=== PATIENT | male | born 2000 | race Caucasian/White ===

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

== ENCOUNTER 2018-06-27 09:22 | Emergency (ER) | payer BC ==
[2018-06-27 09:53] VITALS: BP 122/66
--- NOTE | 2018-06-27 10:23 | UC ---
Respiratory Complaint HPI - HPI Summary HPI Summary: Pt presents with c/o cough that began 2 weeks ago. Pt had URI symptoms ~ 2 weeks ago and now has c/o cough that is worse at night and generalized malaise X 2 weeks. - History of Current Complaint Chief Complaint: UCRespiratory Stated Complaint: FLU LIKE SYMPTOMS Time Seen by Provider: 06/27/18 10:07 Hx Obtained From: Patient Onset/Duration: Sudden Onset, Lasting Weeks, Still Present Timing: Intermittent Episodes Severity Initially: Mild Severity Currently: Mild Pain Intensity: 0 Character: Cough: Nonproductive Aggravating Factors: Exertion, Deep Breaths, Recumbent Position Alleviating Factors: Nothing Associated Signs And Symptoms: Positive: URI - Risk Factors Pulmonary Embolism Risk Factors: Negative Cardiac Risk Factors: Negative Pseudomonas Risk Factors: Negative Tuberculosis Risk Factors: Negative - Allergies/Home Medications Allergies/Adverse Reactions: Allergies Allergy/AdvReac Type Severity Reaction Status Date / Time amoxicillin Allergy Unknown Hives Verified 06/27/18 09:49 azithromycin Allergy Unknown Hives Verified 06/27/18 09:49 Penicillins Allergy Unknown Hives Verified 06/27/18 09:49 Home Medications: Home Medications Ixekizumab [Taltz Autoinjector] 80 mg SC ONCE 06/27/18 [History Confirmed ] PMH/Surg Hx/FS Hx/Imm Hx Previously Healthy: Yes - Surgical History Surgical History: None - Family History Known Family History: Positive: Cardiac Disease Negative: Diabetes - Social History Occupation: [employer] - [employer] Lives: Dormitory/Roommates Alcohol Use: None Substance Use Type: None Smoking Status (MU): Never Smoked Tobacco Have You Smoked in the Last Year: No - Immunization History Most Recent Influenza Vaccination: NA Most Recent Pneumonia Vaccination: NA Vaccination Up to Date: Yes Review of Systems Constitutional: Fatigue Skin: Negative Eyes: Negative ENT: Negative Respiratory: Cough Cardiovascular: Negative Gastrointestinal: Negative Genitourinary: Negative Motor: Negative Neurovascular: Negative Musculoskeletal: Negative Neurological: Negative Psychological: Negative Is Patient Immunocompromised?: No All Other Systems Reviewed And Are Negative: Yes Physical Exam Triage Information Reviewed: Yes Appearance: Well-Appearing Vital Signs: Initial Vital Signs Temp 98.1 F 06/27/18 09:48 Pulse 85 06/27/18 09:48 Resp 15 06/27/18 09:48 BP 122/66 06/27/18 09:48 Pulse Ox 96 06/27/18 09:48 Vital Signs Reviewed: Yes Eye Exam: Normal ENT Exam: Normal Dental Exam: Normal Neck exam: Normal Respiratory Exam: Normal Cardiovascular Exam: Normal Musculoskeletal Exam: Normal Neurological Exam: Normal Psychological Exam: Normal Skin Exam: Normal UC Diagnostic Evaluation - Laboratory O2 Sat by Pulse Oximetry: 96 Respiratory Course/Dx - Differential Dx/Diagnosis Differential Diagnosis/HQI/PQRI: Bronchitis, Other - URI Provider Diagnoses: post viral cough Discharge - Sign-Out/Discharge Documenting (check all that apply): Patient Departure All imaging exams completed and their final reports reviewed: No Studies - Discharge Plan Condition: Stable Disposition: HOME Prescriptions: Benzonatate CAP* [Tessalon 100 MG CAP*] 100 mg PO TID PRN #21 cap PRN Reason: Cough Fexofenadine/Pseudoephedrine [Anna-D 24 Hour Tablet] 1 each PO DAILY #7 tab.er.24h predniSONE TAB* [Deltasone 10 MG TAB*] 30 mg PO DAILY #12 tab Patient Education Materials: Viral Syndrome (ED), Acute Cough (ED) Referrals: Geremias JOSEPH,Alexandre Li [Primary Care Provider] - If Needed - Billing Disposition and Condition Condition: STABLE Disposition: Home - Attestation Statements Provider Attestation: I was available for consult. This patient was seen by the CLEMENTINA. The patient was not presented to, seen by, or examined by me. -Alex
== END 2018-06-27 10:39 | disposition home or self-care (01) ==
LOC: UCCORT 09:22
DX: R05 Cough (principal); Z88.0 Allergy status to penicillin
CPT/HCPCS: 99212; G0463

== ENCOUNTER 2019-03-11 17:50 | Emergency (ER) | payer BC ==
[2019-03-11 18:07] VITALS: BP 106/63
[2019-03-11] MEDS ORDERED: Tetan/Diph/Pertus SYR(Tdap)* 0.5 ML SYR(BOOSTRIX) use SYR IM ONE (18:27)
[2019-03-11] MEDS ORDERED: Lidocaine 2% W/EPI 1:100,000* 20 ML MDV INJ ONE (18:31)
--- NOTE | 2019-03-11 18:37 | UC ---
Laceration HPI - HPI Summary HPI Summary: 18-year-old male who sustained a laceration to his left forearm at 11 AM today with a clean knife. While he was here he also noticed tick on his back. - History Of Current Complaint Chief Complaint: UCLaceration Stated Complaint: LEFT ARM LACERATION Time Seen by Provider: 03/11/19 18:25 Hx Obtained From: Patient Laceration Location: Arm Mechanism Of Injury: Sharp Trauma Onset/Duration: Sudden Onset Severity: Mild Pain Intensity: 0 Aggravating Factors: Nothing - Allergies/Home Medications Allergies/Adverse Reactions: Allergies Allergy/AdvReac Type Severity Reaction Status Date / Time amoxicillin Allergy Unknown Hives Verified 03/11/19 18:08 azithromycin Allergy Unknown Hives Verified 03/11/19 18:08 Penicillins Allergy Unknown Hives Verified 03/11/19 18:08 Home Medications: Home Medications DULoxetine DR JAMES* [Cymbalta CAP*] 1 tab PO DAILY 03/11/19 [History Confirmed ] PMH/Surg Hx/FS Hx/Imm Hx Previously Healthy: Yes - Surgical History Surgical History: None - Family History Known Family History: Positive: Cardiac Disease Negative: Diabetes - Social History Alcohol Use: None Substance Use Type: None Smoking Status (MU): Never Smoked Tobacco Have You Smoked in the Last Year: No - Immunization History Most Recent Influenza Vaccination: NA Most Recent Pneumonia Vaccination: NA Vaccination Up to Date: Yes Review of Systems All Other Systems Reviewed And Are Negative: Yes Skin: Positive: Other - Laceration left forearm, bleeding is controlled. Tick is embedded in patient's mid back. Is Patient Immunocompromised?: No Physical Exam Triage Information Reviewed: Yes Appearance: Well-Appearing, No Pain Distress, Well-Nourished Vital Signs: Initial Vital Signs Temp 98.4 F 03/11/19 18:03 Pulse 69 03/11/19 18:03 Resp 16 03/11/19 18:03 BP 106/63 03/11/19 18:03 Pulse Ox 96 03/11/19 18:03 Vital Signs Reviewed: Yes Musculoskeletal Exam: Normal Neurological Exam: Normal Psychological Exam: Normal Skin: Positive: Other - Laceration to left forearm, approximately 1.0 cm in length Laceration Repair - Laceration Repair 1 Description: Linear Laceration Size After Repair: Length (cm) - 1.0 cm Modified For Repair: No Cleansing Completed Via Routine Prep: Yes Irrigation With Pressure Irrigation Device: Yes Closure Material: Sutures - Sutures placed # 2, pt preferred not to have local anesthesia Closure Method: Single Layer Suture Of: Skin Suture Type: Prolene - 4-0 prolene Laceration Course/Dx - Course/Dx Course Of Treatment: Pt tolerated laceration repair well. Tick was removed from back. Not engorged however pt not sure how long it was there. Will treat with one time dose of Doxycycline. - Diagnosis Provider Diagnosis: Laceration of left forearm, Tick bite of back Discharge - Sign-Out/Discharge Documenting (check all that apply): Patient Departure All imaging exams completed and their final reports reviewed: No Studies - Discharge Plan Condition: Fair Disposition: HOME Patient Education Materials: Care For Your Stitches (DC), Tick Bite (ED) Referrals: Alexandre Archuleta PA [Primary Care Provider] - Additional Instructions: Follow-up with your primary care provider in approximately 8-10 days for suture removal. Watch for signs of infection such as hot, red, tender, red streaks or pus drainage. If you develop any body aches, fever, joint aches or rashes in the next 2-4 weeks follow-up with your primary care provider for evaluation for possible Lyme disease. - Billing Disposition and Condition Condition: FAIR Disposition: Home - Attestation Statements Provider Attestation: Per institutional requirements, I have reviewed the chart, however, I was not consulted specifically or made aware of this patient by the midlevel provider. I did not personally evaluate, interact with , or disposition this patient.
== END 2019-03-11 19:03 | disposition home or self-care (01) ==
LOC: UCCORT 17:50
DX: S51.812A Laceration without foreign body of left forearm, initial encounter (principal); W26.0XXA Contact with knife, initial encounter; Y92.9 Unspecified place or not applicable; Z88.0 Allergy status to penicillin; Z88.1 Allergy status to other antibiotic agents; T63.481A Toxic effect of venom of other arthropod, accidental (unintentional), initial encounter
CPT/HCPCS: 12001; 90471; 90715; 99212; G0463